=== PATIENT | male | born 1995 | race Caucasian/White ===

== ENCOUNTER 2017-11-14 21:40 | Emergency (ER) | payer OTHER ==
--- NOTE | 2017-11-14 21:51 | EDPHY ---
H & P Stated Complaint: dark red in urine started today Time Seen by Provider: 11/14/17 21:51 HPI/ROS: HPI CHIEF COMPLAINT: Blood in urine. HISTORY OF PRESENT ILLNESS: 22-year-old male, otherwise healthy no significant medical history presents emergency room with blood in his urine. He has urinated twice tonight notice some red color. Denies any back pain or abdominal pain, denies dysuria, denies testicular pain. States he has intercourse with 1 partner unprotected. Denies any history of STI. Denies STI risk factors. Never had this before. Denies flank pain. Denies back pain. Denies fever. Denies testicular pain. Patient denies urinary frequency or dysuria. No vigorous activity. Has not been sick. Past Medical History: No significant medical history Past Surgical History: No significant surgical history Social History: [employer] student. Denies drugs alcohol tobacco. Family History: Noncontributory ROS REVIEW OF SYSTEMS: 10 Systems were reviewed and negative with the exception of the elements mentioned in the history of present illness. Exam Constitutional appears well nontoxic triage nursing summary reviewed, vital signs reviewed, awake/alert. Eyes normal conjunctivae and sclera, EOMI, PERRLA. HENT normal inspection, atraumatic, moist mucus membranes, no epistaxis, neck supple/ no meningismus, no raccoon eyes. Respiratory clear to auscultation bilaterally, normal breath sounds, no respiratory distress, no wheezing. Cardiovascular rate normal, regular rhythm, no murmur, no edema, distal pulses normal. Gastrointestinal soft, non-tender, no rebound, no guarding, normal bowel sounds, no distension, no pulsatile mass. Genitourinary no CVA tenderness. Musculoskeletal no midline vertebral tenderness, full range of motion, no calf swelling, no tenderness of extremities, no meningismus, good pulses, neurovascularly intact. Skin pink, warm, & dry, no rash, skin atraumatic. Neurologic awake, alert and oriented x 3, AAOx3, moves all 4 extremities equally, motor intact, sensory intact, CN II-XII intact, normal cerebellar, normal vision, normal speech. Psychiatric normal mood/affect. Heme/Lymph/Immune no lymphadenopathy. Differential Diagnosis: Includes but is not limited to in a particular order UTI, cystitis, pyelonephritis, kidney stone, tumor, red discoloration of urine, rhabdomyolysis Medical Decision Making: Plan for this patient UA. Re-evaluation: Blood work, ultrasound, urinalysis reviewed. Urinalysis does indicate blood. Ultrasound unremarkable for causes of blood in the general ureteral tract. There is an incidental finding of an adrenal mass for cyst. This will need outpatient workup. With an adrenal part of call CT scan. Discussed this in detail with the patient. I have given him is ultrasound report Patient understands. Also additionally should follow up with Urology for hematuria. Additionally understands return emergency room if there is worsening symptoms including abdominal pain, flank pain, fever, vomiting, worsening blood in his urine. Source: Patient - Personal History Current Tetanus/Diphtheria Vaccine: Yes Current Tetanus Diphtheria and Acellular Pertussis (TDAP): Yes - Medical/Surgical History Hx Asthma: No Hx Chronic Respiratory Disease: No Hx Diabetes: No Hx Cardiac Disease: No Hx Renal Disease: No Hx Cirrhosis: No Hx Alcoholism: No Hx HIV/AIDS: No Hx Splenectomy or Spleen Trauma: No Other PMH: nose surgery - Social History Smoking Status: Current every day smoker Constitutional: Initial Vital Signs Temperature (C) 36.7 C 11/14/17 21:46 Heart Rate 61 11/14/17 21:46 Respiratory Rate 16 11/14/17 21:46 Blood Pressure 135/73 H 11/14/17 21:46 O2 Sat (%) 96 11/14/17 21:46 O2 Delivery Mode Room Air Allergies/Adverse Reactions: No Known Allergies Allergy (Unverified 11/14/17 21:48) Home Medications: Medication Instructions Recorded Fluoxetine HCl 11/14/17 Medical Decision Making - Diagnostics Imaging Results: Imaging Impressions Abdomen/Pelvis Ultrasound 11/14/17 22:29 Impression: Normal ultrasound appearance of the kidneys. Equivocal right adrenal mass. Recommend CT adrenal protocol for further evaluation. Results called to Dr. Davis at 11:30 PM. - Data Points Laboratory Results: Laboratory Results 11/14/17 22:37 11/14/17 22:37 11/14/17 11/14/17 11/14/17 22:37 22:37 22:15 WBC 7.26 10^3/uL 10^3/uL (3.80-9.50) RBC 4.80 10^6/uL 10^6/uL (4.40-6.38) Hgb 15.2 g/dL g/dL (13.7-17.5) Hct 41.5 % % (40.0-51.0) MCV 86.5 fL fL (81.5-99.8) MCH 31.7 pg pg (27.9-34.1) MCHC 36.6 g/dL g/dL (32.4-36.7) RDW 12.0 % % (11.5-15.2) Plt Count 201 10^3/uL 10^3/uL (150-400) MPV 10.4 fL fL (8.7-11.7) Neut % (Auto) 50.2 % % (39.3-74.2) Lymph % (Auto) 38.7 % % (15.0-45.0) [place] % (Auto) 7.7 % % (4.5-13.0) Eos % (Auto) 2.3 % % (0.6-7.6) Baso % (Auto) 1.0 % % (0.3-1.7) Nucleat RBC Rel Count 0.0 % % (0.0-0.2) Absolute Neuts (auto) 3.64 10^3/uL 10^3/uL (1.70-6.50) Absolute Lymphs (auto) 2.81 10^3/uL 10^3/uL (1.00-3.00) Absolute Monos (auto) 0.56 10^3/uL 10^3/uL (0.30-0.80) Absolute Eos (auto) 0.17 10^3/uL 10^3/uL (0.03-0.40) Absolute Basos (auto) 0.07 10^3/uL 10^3/uL (0.02-0.10) Absolute Nucleated RBC 0.00 10^3/uL 10^3/uL (0-0.01) Immature Gran % 0.1 % % (0.0-1.1) Immature Gran # 0.01 10^3/uL 10^3/uL (0.00-0.10) Sodium 138 mEq/L mEq/L (135-145) Potassium 4.0 mEq/L mEq/L (3.3-5.0) Chloride 107 mEq/L mEq/L (97-110) Carbon Dioxide 21 mEq/l L mEq/l (22-31) Anion Gap 10 mEq/L mEq/L (8-16) BUN 18 mg/dL mg/dL (7-23) Creatinine 0.8 mg/dL mg/dL (0.7-1.3) Estimated GFR > 60 Glucose 94 mg/dL mg/dL (70-100) Calcium 9.8 mg/dL mg/dL (8.5-10.4) Creatine Kinase 71 IU/L IU/L (0-224) Urine Color COLORLESS Urine Appearance CLEAR Urine pH 6.0 (5.0-7.5) Ur Specific [place] 1.001 L (1.002-1.030) Urine Protein NEGATIVE (NEGATIVE) Urine Ketones NEGATIVE (NEGATIVE) Urine Blood 1+ H (NEGATIVE) Urine Nitrate NEGATIVE (NEGATIVE) Urine Bilirubin NEGATIVE (NEGATIVE) Urine Urobilinogen NEGATIVE EU EU (0.2-1.0) Ur Leukocyte Esterase NEGATIVE (NEGATIVE) Urine RBC NONE SEEN /hpf /hpf (0-3) Urine WBC 1-3 /hpf /hpf (0-3) Ur Epithelial Cells NONE SEEN /lpf /lpf (NONE-1+) Urine Glucose NEGATIVE (NEGATIVE) Departure - Departure Disposition: Home, Routine, Self-Care Clinical Impression: Hematuria Qualifiers: Hematuria type: gross Qualified Code(s): R31.0 - Gross hematuria Condition: Good Instructions: Hematuria (ED) Additional Instructions: 1. Please follow up with Urology 2. Return emergency room if there is worsening symptoms questions or concerns. 3. Additionally her ultrasound shows a small mass versus cyst on her right adrenal gland. This will need further characterization and follow up with the CT scan adrenal protocol. Please have your primary care doctor help you set up this. Referrals: NONE *PRIMARY CARE P,. [Primary Care Provider] - As per Instructions Ubaldo Wren MD [Medical Doctor] - As per Instructions
[2017-11-14 22:45] LABS: PLATELET COUNT 201 10^3/uL (150-400)
[2017-11-14 22:55] LABS: CREATINE KINASE 71 IU/L (0-224)
[2017-11-15 00:11] VITALS: BP 128/75
== END 2017-11-15 00:10 | disposition home or self-care (01) ==
DX: R31.0 Gross hematuria (principal); F17.200 Nicotine dependence, unspecified, uncomplicated